=== PATIENT | male | born 1970 | race Caucasian/White ===

== ENCOUNTER 2018-08-15 01:49 | Emergency (ER) | payer OTHER ==
[~2018-08-15] VITALS: Ht 172.7 cm; Wt 67.6 kg
[~2018-08-15 01:49] MED LIST: ACETAMINOPHEN325 M1 ORAL; AMBIEN5 MG ORAL; ATORVASTATIN CA10 MG ORAL; DEPAKOTE500 MG PO; DILANTIN100 MG ORAL; HEPARIN SO5000 UNIT2 SUBQ; KLONOPIN0.5 MG ORAL; LOPRESSOR25 M1 ORAL; MILK OF MA2400 MG/10 ORAL; MIRALAX17 G2 ORAL; MULTIVITAMINS1 EAC8 ORAL; MYLANTA30 M1 ORAL; OLANZAPINE10 MG ORAL
--- NOTE | 2018-08-15 01:55 | NUR ---
ED Nurse Note: Patient presents wit aphasia, speaks quietly patient has blood clot int he right leg.
--- NOTE | 2018-08-15 02:08 | Emergency Room Report ---
History of Present Illness General Chief Complaint: General Complaint Source: Medical Record, EMS Present Illness HPI This is a 48-year-old alf patient with a history of seizure and status post craniotomy. He presents with chief complaint of a DVT to his right lower extremity. His had some swelling to the lower extremity and had ultrasound done today which was positive for acute DVT. He was sent here for evaluation. Unable to get any other history from patient. History is from alf note and from EMS. Allergies: Coded Allergies: PENICILLINS (Verified Allergy, Unknown, 04/09/18) Patient History Past Medical History: see triage record, old chart reviewed Past Surgical History: other Pertinent Family History: none Social History: Denies: smoking Immunizations: other Reviewed Nursing Documentation: PMH: Agreed; PSxH: Agreed Nursing Documentation-PMH Hx Cardiac Problems: No Hx Cancer: No Hx Gastrointestinal Problems: No Hx Neurological Problems: Yes - unspecified mental disorder Hx Seizures: Yes - Aphasic Hx Epilepsy: Yes Hx Aphasia: Yes Hx Neurologic Surgery: Yes - Craniotomy Review of Systems Eye: Denies: eye pain, blurred vision ENT: Denies: ear pain, nose congestion, throat swelling Respiratory: Denies: cough, shortness of breath Cardiovascular: Denies: chest pain, palpitations Gastrointestinal: Denies: abdominal pain, diarrhea, nausea, vomiting Musculoskeletal: Denies: back pain, joint pain Skin: Denies: rash Neurological: Denies: headache, numbness Endocrine: Denies: increased thirst, increased urine Hematologic/Lymphatic: Denies: easy bruising All Other Systems: negative except mentioned in HPI Physical Exam Vital Signs Date Time Temp Pulse Resp B/P (MAP) Pulse Ox O2 Delivery O2 Flow Rate FiO2 08/15/18 01:55 98.4 88 22 121/78 95 Room Air vitals normal Sp02 EP Interpretation: reviewed, normal General Appearance: well appearing, no apparent distress, alert Head: normocephalic, atraumatic, other - Left-sided craniotomy Eyes: bilateral eye PERRL, bilateral eye EOMI ENT: hearing grossly normal, normal pharynx Neck: full range of motion, supple, no meningismus Respiratory: chest non-tender, lungs clear, normal breath sounds Cardiovascular #1: regular rate, rhythm, no murmur Gastrointestinal: normal bowel sounds, non tender, no mass, no organomegaly, no bruit, non-distended Musculoskeletal: back normal, other - Contracted. Right calf slightly larger than left. Psychiatric: mood/affect normal Skin: warm/dry Medical Decision Making Diagnostic Impression: Primary Impression: Right femoral vein DVT Qualified Codes: I82.411 - Acute embolism and thrombosis of right femoral vein ER Course Patient presents with an acute right femoral vein DVT. His risk factors include been immobile. I gave him Lovenox here. Labs unremarkable. We'll admit for further workup. I stressed the case with Dr. Stiles who will admit. Lab Results Impression labs unremarkable Last Vital Signs Date Time Temp Pulse Resp B/P (MAP) Pulse Ox O2 Delivery O2 Flow Rate FiO2 08/15/18 01:55 98.4 88 22 121/78 95 Room Air Status: improved Disposition: ADMITTED INPATIENT Condition: Serious Sanjay Slater MD Aug 15, 2018 02:08
[2018-08-15] MEDS ORDERED: Enoxaparin 80mg Inj SUBQ ONE (02:15)
[2018-08-15] MEDS ORDERED: DILANTIN100 MG ORAL (02:37)
[2018-08-15] MEDS ORDERED: [UNRECOGNIZED DRUG - OTHER] (02:37)
[2018-08-15] MEDS ORDERED: ATORVASTATIN CA10 MG ORAL (02:37)
[2018-08-15] MEDS ORDERED: METOPROLOL TART25 MG ORAL (02:37)
[2018-08-15 02:51] VITALS: BP 121/78
[2018-08-15 02:52] LABS: BASOPHILS % (AUTO) 0.9 % (0.0-2.0); EOSINOPHILS % (AUTO) 0.9 % (0.0-3.0); HEMATOCRIT 50.2 % (42.0-52.0); HEMOGLOBIN 17.6 G/DL (14.2-18.0); LYMPHOCYTES % (AUTO) 20.2 % (20.0-45.0); MEAN CORPUSCULAR VOLUME 91 FL (80-99); MONOCYTES % (AUTO) 7.7 % (1.0-10.0); NEUTROPHILS % (AUTO) 70.4 % (45.0-75.0); PLATELET COUNT 221 K/UL (150-450); RED BLOOD COUNT 5.49 M/UL (4.70-6.10); RED CELL DISTRIBUTION WIDTH 10.9 % (11.6-14.8); WHITE BLOOD COUNT 6.7 K/UL (4.8-10.8)
--- NOTE | 2018-08-15 03:00 | NUR ---
ED Nurse Note: Patient resting comfortably with no s/s of acute distress.
[2018-08-15 03:04] LABS: ANION GAP 8 mmol/L (5-15); BLOOD UREA NITROGEN 17 mg/dL (7-18); CALCIUM 8.8 MG/DL (8.5-10.1); CARBON DIOXIDE 29 MMOL/L (21-32); CHLORIDE 104 MMOL/L (98-107); CREATININE 0.8 MG/DL (0.55-1.30); POTASSIUM 3.7 MMOL/L (3.5-5.1); SODIUM 141 MMOL/L (136-145)
[2018-08-15 04:06] VITALS: BP 121/83
--- NOTE | 2018-08-15 04:06 | NUR ---
ED Nurse Note: Patien relaxing calmly, vitl signs stable, no s/s of acute distress.
[2018-08-15] MEDS ORDERED: Hydromorphone 0.5mg/0.5ml inj IVP PRN (04:45)
[2018-08-15] MEDS ORDERED: Zolpidem 5mg tab ORAL PRN (04:45)
[2018-08-15] MEDS ORDERED: Metoclopramide 10mg/2ml Inj IVP PRN (04:45)
[2018-08-15] MEDS ORDERED: Albuterol ud Inhalation HHN PRN (04:45)
[2018-08-15 05:10] VITALS: BP 136/88
--- NOTE | 2018-08-15 05:11 | NUR ---
ED Nurse Note: Patient is sleeping comfortably , no s/s of bizarre behavior or acute distress.
--- NOTE | 2018-08-15 06:19 | NUR ---
ED Nurse Note: Patient awake and alert, resting comfortably.
--- NOTE | 2018-08-15 07:01 | NUR ---
HAND-OFF: Report given to denisse SAUNDERS .
--- NOTE | 2018-08-15 07:13 | NUR ---
ED Nurse Note: Tried giving report. RN unavailable.
[2018-08-15 07:27] VITALS: BP 115/69
--- NOTE | 2018-08-15 07:47 | NUR ---
ED Nurse Note: Gave telephone report to NICKY Walker from [place]. Awaiting arrival of transport.
--- NOTE | 2018-08-15 09:32 | NUR ---
ED Nurse Note: Pt instructed importance of being on the site monitor. Pt noted to pulling out cfardiac monitor after explaining.
--- NOTE | 2018-08-15 10:40 | NUR ---
ED Nurse Note: Gave report to EMS for transfer. Left ER w/ no acute distress and all belongings. No complaints of pain.
[2018-08-15 11:12] VITALS: BP 105/78
[2018-08-15] MEDS ORDERED: Enoxaparin 80mg Inj SUBQ SCH (14:00)
--- NOTE | 2018-08-15 20:37 | Consultation ---
History of Present Illness General Date patient seen: Aug 15, 2018 Chief Complaint: General Complaint Present Illness Allergies: Coded Allergies: PENICILLINS (Verified Allergy, Unknown, 04/09/18) Medication History Scheduled Al Hydroxide/mg Hydroxide (Mag-Al Liquid), 30 ML ORAL Q6HR, (Reported) Atorvastatin Calcium* (Lipitor*), 10 MG ORAL BEDTIME, (Reported) Atorvastatin Calcium* (Lipitor*), 10 MG ORAL BEDTIME, (Reported) Clonazepam* (Klonopin*), 0.5 MG ORAL BID, (Reported) Divalproex Sodium (Depakote), 500 MG PO Q12HR, (Reported) Heparin Sod (Porcine) (Heparin Sodium*), 5,000 UNITS SUBQ EVERY 12 HOURS, ( Reported) Magnesium Hydroxide* (Milk Of Magnesia*), 30 ML ORAL DAILY, (Reported) Metoprolol Tartrate (Metoprolol Tartrate), 12.5 MG ORAL EVERY 12 HOURS, ( Reported) Metoprolol Tartrate* (Metoprolol Tartrate*), 25 MG ORAL EVERY 12 HOURS, ( Reported) Multivitamin With Minerals (Multivitamins With Minerals*), 1 TAB ORAL DAILY, ( Reported) Olanzapine (Olanzapine), 10 MG ORAL BID, (Reported) Phenytoin Sodium Extended* (Dilantin*), 200 MG ORAL TWICE A DAY, (Reported) Phenytoin Sodium Extended* (Dilantin*), 100 MG ORAL BID, (Reported) Scheduled PRN Acetaminophen* (Acetaminophen 325MG Tablet*), 650 MG ORAL Q4H PRN for For Pain, (Reported) Acetaminophen* (Acetaminophen 325MG Tablet*), 650 MG ORAL Q4H PRN for Fever/ Headache/Mild Pain, (Reported) Polyethylene Glycol 3350* (Miralax*), 17 GM ORAL DAILY PRN for Constipation, ( Reported) Zolpidem Tartrate* (Ambien*), 5 MG ORAL BEDTIME PRN for Insomnia, (Reported) Miscellaneous Medications [Gerilanta], (Reported) Patient History Healthcare decision maker Resuscitation status Advanced Directive on File Physical Exam Last 24 Hour Vital Signs Date Time Temp Pulse Resp B/P (MAP) Pulse Ox O2 Delivery O2 Flow Rate FiO2 08/15/18 11:12 97.6 73 14 105/78 97 Room Air 08/15/18 07:27 98.2 102 18 115/69 90 Room Air 08/15/18 05:10 98.4 83 14 136/88 100 Room Air 08/15/18 04:06 98.4 74 13 121/83 98 Room Air 08/15/18 02:51 98.4 22 121/78 95 Room Air 08/15/18 02:51 88 22 Room Air 08/15/18 01:55 98.4 88 22 121/78 95 Room Air Intake and Output 08/14/18 08/15/18 18:59 06:59 Intake Total 0 ml Balance 0 ml Intake Oral 0 ml Laboratory Tests Test 08/15/18 02:40 White Blood Count 6.7 K/UL (4.8-10.8) Red Blood Count 5.49 M/UL (4.70-6.10) Hemoglobin 17.6 G/DL (14.2-18.0) Hematocrit 50.2 % (42.0-52.0) Mean Corpuscular Volume 91 FL (80-99) Mean Corpuscular Hemoglobin 32.1 PG (27.0-31.0) H Mean Corpuscular Hemoglobin Concent 35.1 G/DL (32.0-36.0) Red Cell Distribution Width 10.9 % (11.6-14.8) L Platelet Count 221 K/UL (150-450) Mean Platelet Volume 8.1 FL (6.5-10.1) Neutrophils (%) (Auto) 70.4 % (45.0-75.0) Lymphocytes (%) (Auto) 20.2 % (20.0-45.0) Monocytes (%) (Auto) 7.7 % (1.0-10.0) Eosinophils (%) (Auto) 0.9 % (0.0-3.0) Basophils (%) (Auto) 0.9 % (0.0-2.0) Prothrombin Time 11.0 SEC (9.30-11.50) Prothromb Time International Ratio 1.0 (0.9-1.1) Activated Partial Thromboplast Time 30 SEC (23-33) Sodium Level 141 MMOL/L (136-145) Potassium Level 3.7 MMOL/L (3.5-5.1) Chloride Level 104 MMOL/L (98-107) Carbon Dioxide Level 29 MMOL/L (21-32) Anion Gap 8 mmol/L (5-15) Blood Urea Nitrogen 17 mg/dL (7-18) Creatinine 0.8 MG/DL (0.55-1.30) Estimat Glomerular Filtration Rate > 60 mL/min (>60) Glucose Level 97 MG/DL (74-106) Calcium Level 8.8 MG/DL (8.5-10.1) Microbiology Date/Time Source Procedure Growth Status 08/15/18 04:26 Rectum Received Height (Feet): 5 Height (Inches): 8.00 Weight (Pounds): 149 Assessment/Plan Assessment/Plan Hematology Consult REQ MD: Praneeth Stiles RFC: DVT leg DOS: 08/15/18 PATIENT SEEN IN THE AM HPI This is a 48-year-old [facility] patient with a history of seizure and status post craniotomy. He presents with chief complaint of a DVT to his right lower extremity. His had some swelling to the lower extremity and had ultrasound done today which was positive for acute DVT. He was sent here for evaluation. Unable to get any other history from patient. History is from [facility] note and from EMS. Started on lovenox sq bid. Allergies: PENICILLINS (Verified Allergy, Unknown, 04/09/18) Past Medical History: see triage record, old chart reviewed Past Surgical History: other Pertinent Family History: none Social History: Denies: smoking Immunizations: other Reviewed Nursing Documentation: PMH: Agreed; PSxH: Agreed Hx Cardiac Problems: No Hx Cancer: No Hx Gastrointestinal Problems: No Hx Neurological Problems: Yes - unspecified mental disorder Hx Seizures: Yes - Aphasic Hx Epilepsy: Yes Hx Aphasia: Yes Hx Neurologic Surgery: Yes - Craniotomy Review of Systems Eye: Denies: eye pain, blurred vision ENT: Denies: ear pain, nose congestion, throat swelling Respiratory: Denies: cough, shortness of breath Cardiovascular: Denies: chest pain, palpitations Gastrointestinal: Denies: abdominal pain, diarrhea, nausea, vomiting Musculoskeletal: Denies: back pain, joint pain Skin: Denies: rash Neurological: Denies: headache, numbness Endocrine: Denies: increased thirst, increased urine Hematologic/Lymphatic: Denies: easy bruising All Other Systems: negative except mentioned in HPI Physical Exam Last 24 Hour Vital Signs Date Time Temp Pulse Resp B/P (MAP) Pulse Ox O2 Delivery O2 Flow Rate FiO2 08/15/18 11:12 97.6 73 14 105/78 97 Room Air 08/15/18 07:27 98.2 102 18 115/69 90 Room Air 08/15/18 05:10 98.4 83 14 136/88 100 Room Air 08/15/18 04:06 98.4 74 13 121/83 98 Room Air 08/15/18 02:51 98.4 22 121/78 95 Room Air 08/15/18 02:51 88 22 Room Air 08/15/18 01:55 98.4 88 22 121/78 95 Room Air Sp02 EP Interpretation: reviewed, normal General Appearance: well appearing, no apparent distress, alert Head: normocephalic, atraumatic, other - Left-sided craniotomy Eyes: bilateral eye PERRL, bilateral eye EOMI ENT: hearing grossly normal, normal pharynx Neck: full range of motion, supple, no meningismus Respiratory: chest non-tender, lungs clear, normal breath sounds Cardiovascular: regular rate, rhythm, no murmur Gastrointestinal: normal bowel sounds, non tender Musculoskeletal: Contracted. Right calf slightly larger than le Laboratory Tests Test 08/15/18 02:40 White Blood Count 6.7 K/UL (4.8-10.8) Red Blood Count 5.49 M/UL (4.70-6.10) Hemoglobin 17.6 G/DL (14.2-18.0) Hematocrit 50.2 % (42.0-52.0) Mean Corpuscular Volume 91 FL (80-99) Mean Corpuscular Hemoglobin 32.1 PG (27.0-31.0) H Mean Corpuscular Hemoglobin Concent 35.1 G/DL (32.0-36.0) Red Cell Distribution Width 10.9 % (11.6-14.8) L Platelet Count 221 K/UL (150-450) Mean Platelet Volume 8.1 FL (6.5-10.1) Neutrophils (%) (Auto) 70.4 % (45.0-75.0) Lymphocytes (%) (Auto) 20.2 % (20.0-45.0) Monocytes (%) (Auto) 7.7 % (1.0-10.0) Eosinophils (%) (Auto) 0.9 % (0.0-3.0) Basophils (%) (Auto) 0.9 % (0.0-2.0) Prothrombin Time 11.0 SEC (9.30-11.50) Prothromb Time International Ratio 1.0 (0.9-1.1) Activated Partial Thromboplast Time 30 SEC (23-33) Sodium Level 141 MMOL/L (136-145) Potassium Level 3.7 MMOL/L (3.5-5.1) Chloride Level 104 MMOL/L (98-107) Carbon Dioxide Level 29 MMOL/L (21-32) Anion Gap 8 mmol/L (5-15) Blood Urea Nitrogen 17 mg/dL (7-18) Creatinine 0.8 MG/DL (0.55-1.30) Estimat Glomerular Filtration Rate > 60 mL/min (>60) Glucose Level 97 MG/DL (74-106) Calcium Level 8.8 MG/DL (8.5-10.1) Assessment and Recs: # Right femoral vein DVT -- Patient presents with an acute right femoral vein DVT. His risk factors include been immobile. I gave him Lovenox here. Labs unremarkable. --> admit orders have been placed --> lovenox starte in house --> consider NOAC once discharged --> potential transfer to [facility] # Mental disorder # Craniotomy The timing of this note does not necessarily reflect the time of the patient was seen. Greatly appreciate consultation! Kel Rojas MD Aug 15, 2018 20:37
== END 2018-08-15 10:40 | disposition other institution (70) ==
LOC: EDBD 01:49 → EMR 02:00
DX: I82.411 Acute embolism and thrombosis of right femoral vein (principal); Z88.0 Allergy status to penicillin
CPT/HCPCS: 36415; 80048; 85025; 85610; 85730; 87081; 96372; 99285; J1650